=== PATIENT | female | born 1935 | race Caucasian/White ===

== ENCOUNTER 2017-05-06 18:11 | Observation (INO) ==
--- NOTE | 2017-05-06 18:18 | Emergency Department Report ---
Lower Extremity Injury HPI - General Stated Complaint: fall - knee pain Time Seen by Provider: 05/06/17 18:27 Source: patient, family, EMS - History of Present Illness HPI Narrative: 81 YO F brought to ED via EMS with complaint of left knee pain after a fall at home. Patient says she was putting away some laundry in her bathroom when she felt her left foot give way which caused her to fall landing on anterior left knee. Denies striking her head or other injuries. Patient uses a walker or a cane to ambulate. Says she was using her cane because walker will not go through her bathroom door. Niece who accompanies patient says that patient lives alone. She helps care for patient and is at patient house at least 4 times daily. Says patient had a fall and struck same knee on 04-09-17. Had TIA several days before last fall in early April. Patient denies any LOC, striking her head, neck/back pain, dizziness now or prior to fall or other injuries. MD complaint: knee injury Injury: Left: knee Type of Injury: blunt Place: home Severity: moderate Severity scale (1-10): 5 Other symptoms: none - Related Data Home Medications Medication Instructions Recorded Confirmed Allopurinol 100 mg PO DAILY #0 08/16/09 05/06/17 Lisinopril 10 mg PO DAILY #0 08/16/09 05/06/17 Potassium Chloride [Klor-Con 10] 10 meq PO DAILY #0 08/16/09 05/06/17 Furosemide [Lasix] 40 mg PO BID #0 tab 11/03/14 05/06/17 Acetaminophen 650 mg PO Q4H PRN 05/06/17 05/06/17 Aspirin [Priscila Chewable Aspirin] 81 mg PO PM 05/06/17 05/06/17 Atorvastatin [Lipitor] 20 mg PO PM 05/06/17 05/06/17 Calcium Carbonate/Vitamin D3 1 tab PO BID 05/06/17 05/06/17 [Os-Tyrel 500-Vit D3 200 Caplet] Carboxymethyl/Glycerin/Poly80 1 drop EACH EYE DAILY 05/06/17 05/06/17 [Refresh Optive Advanced Drops] Cholecalciferol (Vitamin D3) 400 unit PO PM 05/06/17 05/06/17 [Vitamin D3] Ferrous Sulfate [Iron] 325 mg PO PM 05/06/17 05/06/17 Insulin NPH/Reg-Don't Expunge 10 unit SQ WS 05/06/17 05/06/17 [Humulin 70/30] Insulin NPH/Reg-Don't Expunge 20 unit SQ AMI 05/06/17 05/06/17 [Humulin 70/30] Multivit-Min/FA/Lycopen/Lutein 1 tab PO PM 05/06/17 05/06/17 [Centrum Silver Tablet] Allergies Allergy/AdvReac Type Severity Reaction Status Date / Time tramadol Allergy Severe Constipatio Verified 05/06/17 19:07 n cyclobenzaprine Allergy Mild Constipatio Verified 05/06/17 18:23 n hydrocodone Allergy Mild Constipatio Verified 05/06/17 18:23 n chlorpheniramine Allergy Unknown Verified 05/06/17 19:07 metformin Allergy Unknown Unconscious Unverified 05/07/17 15:47 Review of Systems All systems: reviewed and negative except as stated Musculoskeletal: Reports: as per HPI, joint swelling (and pain) PFSH Patient Stated Medical History Cataracts Yes Congestive Heart Failure Yes Hypertension Yes Sleep Apnea Yes Diabetes Mellitus Type 1 Yes Diabetes Mellitus Type 2 Yes Type II diabetic Surgical History: Tonsillectomy. Hysterectomy. Cholecystectomy. Cataract. Ganglion cyst Family History: noncontributory - Social History Smoking status: Never smoker Housing: house Household members: none Current occupational status: retired Physical Exam - General General appearance: alert - Normal Exams: Head:: Normocephalic without trauma Eyes:: Pupils are PERRLA w/ EOMI, No scleral icterus, irritation ENMT:: No facial trauma, nasal exudates Neck:: Full range of motion Chest/Respirations:: Clear all smith, with good airflow, and symmetry bilaterally Cardiovascular:: Regular rate and rhythm Neurological:: Patient is alert, and oriented, cranial nerves, motor/sensory/ cerebellar, exams w/o gross deficits, to observation Psychiatric:: Patient exhibits, appropriate attention - Neck Neck exam: Present: trachea midline - Expanded Lower Extremity Exam Upper leg exam: Absent: tenderness (left), swelling (left) Knee exam: Present: tenderness (anterior left knee), swelling (anterior left knee), ecchymosis (over anterior left knee), knee extension intact (left). Absent: deformity, crepitus, dislocation, erythema, anterior drawer sign, laxity with valgus, laxity with varus Lower leg exam: Absent: tenderness (left), swelling (left), ecchymosis (left), erythema (left) Ankle exam: Present: full ROM (left). Absent: tenderness (left), swelling (left ) Foot/toe exam: Present: normal inspection (bilterally) Neurovascular/Tendon exam: Present: normal fine/light touch. Absent: pulse deficit, extremity cold to touch - Skin Skin exam: Present: warm, dry, other (ecchymosis on upper left arm (which patient says was from prior fall)) - Psychiatric Psychiatric exam: Present: normal affect Course - Consultations Consultation #1: I discussed patient's HPI, PMH, VS, exam findings and x-rays with Dr. John hospitalist. Dr. John will admit observation status. Vital Signs Temperature 98.4 F 05/06/17 18:15 Pulse Rate 55 L 05/06/17 18:15 Respiratory Rate 20 05/06/17 18:15 Blood Pressure 146/73 H 05/06/17 18:15 Pulse Oximetry 99 05/06/17 18:15 Temperature 96.0 F L 05/07/17 16:00 Pulse Rate 60 05/07/17 16:00 Respiratory Rate 20 05/07/17 16:00 Blood Pressure 117/60 05/07/17 16:00 Pulse Oximetry 94 05/07/17 16:00 Extremity Injury, Lower - MDM Narrative Medical decision making narrative: Patient declines anything for pain after on arrival. Was given 100mcg of fentanyl by EMS, says knee is not that painful unless she moves knee. Patient up to ambulate. Does not complain of pain in left knee, but say that her right great toe is painful when she bears weight. X-ray ordered on right great toe. Right great toe x-ray does not show a fracture. I discussed x-ray findings with patient and her niece. Patient says she does not feel safe going home since she lives alone. I discussed conversation I had with Dr. John with patint and her niece. They agree to observation admission. - Differential Diagnosis Likely: acute internal derangement of knee (, knee sprain, knee contusion), fracture of toe, ankle fracture - Medical Records Attestation: I reviewed the patient's medical records. - Lab Data Result diagrams: 05/07/17 09:23 05/07/17 09:23 - Radiology Data Attestation: I reviewed the patient's radiology results. Left knee, no acute osseous findings (Dr. Arceo) Right great toe, no acute osseous findings degenerative changes and osteoporosis (Dr. Arceo) Disposition Clinical Impression: Left Knee Contusion, Toe pain, right Fall Qualifiers: Encounter type: initial encounter Qualified Code(s): W19.XXXA - Unspecified fall, initial encounter Disposition: 02 To [facility] Condition: Improved - Seen By: midlevel
[2017-05-06] MEDS ORDERED: MORPHINE SULFATE 4 MG SYRINGE IVP PRN (21:39)
[2017-05-06] MEDS ORDERED: ONDANSETRON ODT 4 MG TABLET PO PRN (22:49)
[2017-05-06] MEDS ORDERED: ACETAMINOPHEN 325 MG TABLET PO PRN (22:49)
[2017-05-06] MEDS ORDERED: HYDROCODONE/APAP 5mg/325mg TABLET PO PRN (22:49)
--- NOTE | 2017-05-06 23:36 | History & Physical Report ---
<Andreas Elias E - Last Filed: 05/06/17 23:32> History of Present Illness Date: 05/06/17 Chief complaint: Debility status post fall HPI: 81-year-old female who presents to the ER this evening after sustaining a fall at home. She reported that she was doing some laundry and had a mechanical fall while using her cane. She also uses a walker at home. Due to the pain, she sought care in the ER this evening. X-rays have been done, including knee and foot which revealed no evidence of fracture. She received some fentanyl in the ambulance on her way to the hospital, but has not had any further pain medication at her own request. She is apparently worried that she will fall again this evening, and apparently fell one month ago. She also had a TIA one month ago. Due to the concern for weakness and debility, she has requested to stay in the hospital this evening. Thus, she will be placed under observational status with consultation to OT/PT for further evaluation in the morning. Please note this patient encounter was performed via the use of telemedicine technology Review of Systems All systems PM: 10-point ROS was reviewed, no additional remarkable complaints except PFSH Surgical History: Tonsillectomy. Hysterectomy. Cholecystectomy. Cataract. Ganglion cyst - Social History Smoking status: Never smoker Medications Home Medications Medication Instructions Recorded Confirmed Type Allopurinol 100 mg PO DAILY #0 08/16/09 05/06/17 History Lisinopril 10 mg PO DAILY #0 08/16/09 05/06/17 History Potassium Chloride [Klor-Con 10] 10 meq PO DAILY #0 08/16/09 05/06/17 History Furosemide [Lasix] 40 mg PO BID #0 tab 11/03/14 05/06/17 History Acetaminophen 650 mg PO Q4H PRN 05/06/17 05/06/17 History Aspirin [Priscila Chewable Aspirin] 81 mg PO PM 05/06/17 05/06/17 History Atorvastatin [Lipitor] 20 mg PO PM 05/06/17 05/06/17 History Calcium Carbonate/Vitamin D3 1 tab PO BID 05/06/17 05/06/17 History [Os-Tyrel 500-Vit D3 200 Caplet] Carboxymethyl/Glycerin/Poly80 1 drop EACH EYE DAILY 05/06/17 05/06/17 History [Refresh Optive Advanced Drops] Cholecalciferol (Vitamin D3) 400 unit PO PM 05/06/17 05/06/17 History [Vitamin D3] Ferrous Sulfate [Iron] 325 mg PO PM 05/06/17 05/06/17 History Insulin NPH/Reg-Don't Expunge 10 unit SQ WS 05/06/17 05/06/17 History [Humulin 70/30] Insulin NPH/Reg-Don't Expunge 20 unit SQ AMI 05/06/17 05/06/17 History [Humulin 70/30] Multivit-Min/FA/Lycopen/Lutein 1 tab PO PM 05/06/17 05/06/17 History [Centrum Silver Tablet] Allergies Allergy/AdvReac Type Severity Reaction Status Date / Time metformin [From Glucophage] Allergy Severe Unconscious Verified 05/06/17 18:23 tramadol Allergy Severe Constipatio Verified 05/06/17 19:07 n cyclobenzaprine Allergy Mild Constipatio Verified 05/06/17 18:23 n hydrocodone Allergy Mild Constipatio Verified 05/06/17 18:23 n chlorpheniramine Allergy Unknown Verified 05/06/17 19:07 Exam Vital Signs: Temperature 98.4 F 05/06/17 18:15 Pulse Rate 67 05/06/17 22:55 Respiratory Rate 12 05/06/17 22:55 Blood Pressure 123/68 05/06/17 22:55 Pulse Oximetry 93 05/06/17 22:55 - Constitutional Present: no acute distress, morbidly obese - Routine HEENT Exam Head: Present: normocephalic, atraumatic - Routine Respiratory Exam Present: CTA bilaterally - Routine Cardiovascular Exam Present: RRR, S1, S2 - Routine Abdominal Exam Present: soft - Routine Extremities Exam Absent: edema - Routine Neurological Exam Present: alert, oriented X3 Assessment and Plan (1) Debility Current visit: Yes Status: Acute Resuscitation Status: Full Code Assessment and Plan: Assessment 1. Mechanical fall with reported weakness and debility 2. History of TIA one month ago 3. Questionable CHF diagnosis 4. Dementia 5. Insulin-dependent diabetes mellitus 6. Gout 7. Hyperlipidemia 8. Obstructive sleep apnea Plan Patient will be placed under observational status to the medical floor. I will review her home medications and continue those which would be appropriate at this present time, including certainly her insulin orders. As necessary pain medications will be provided, should she she request them. In the morning, consultation to OT/PTas mentioned above. She requests a full code status. I believe previously she has had advanced directives for a DNR status. DVT prophylaxis: Will be with subcutaneous Lovenox Hospital Course Summary Disclaimer: The visit summary below is not to be considered part of the above Progress Note. <Vitaly Phillips - Last Filed: 05/07/17 12:39> History of Present Illness Date: 05/07/17 [facility] Patient Stated Medical History Transient Ischemic Attacks ( Yes: April 04, 2017 TIA) Cataracts Yes Congestive Heart Failure Yes Hypertension Yes Sleep Apnea Yes Diabetes Mellitus Type 2 Yes Other GI Yes: Blocked bowel with surgery. Exam Vital Signs: Temperature 95.1 F L 05/07/17 07:30 Pulse Rate 53 L 05/07/17 07:30 Respiratory Rate 20 05/07/17 07:30 Blood Pressure 119/54 05/07/17 07:30 Pulse Oximetry 93 05/06/17 22:55 Height/Weight/BMI: Height 1.55 m Weight 108.5 kg Body Mass Index 45.1 Results - Labs CBC & Chem 7: 05/07/17 09:23 05/07/17 09:23 Assessment and Plan (1) Debility Current visit: Yes Status: Acute DVT Prophylaxis: Lovenox Assessment and Plan: Have independently interviewed and examined pt. Chart reviewed. Reviewed above not and concur. CC: Fall, left knee pain. HPI: 81 y/o morbidly obese female who resides independently presents to ED secondary to fall with knee trauma. Was doing chores at home when fell. Landed on her left knee. Fell on 04/09 and landed on same knee. Left knee and foot very sore and painful since her fall. Reports having 'TIA' about a month ago- noticing more instability since. Overall functional at home until having this falls. Cognitively intact. Medically note some cough/congestion-worse in evening. Eating well. Did have episode of nausea and vomiting after given IV pain medication by EMS on way into ED. Stools stable-did need a laxative 1 week ago. No diarrhea. No f/c. PMHx: Type II DM, HTN, HDL, MARY, OA, Gout, Morbid Obesity. Hx Tonsillectomy, Hyst, GB removal, Meds: see mar ALL: Metformin, tramadol, cyclobenzaprine, hydrocodone, chlorpheniramine SHx: Single, resides independently in [place], No smoke, Fhx: NC ROS: As above. Gen: increased unsteadiness. HEENT: vision/hearing stable. No sinus congestion or drainage. Neck: notes discomfort to posterior right neck over past week. CV: no palpitation or chest pain. Lungs: as above GI: as above. : no urinary pain. Remainder of 10 point ROS discussed and negative. Exam. GEN: WDWNWF alert. HEENT: NC/AT PERRLA EOMI MMM Neck: supple, midline, no tracheal deviation Lungs: decreased bilaterally-no crackles, wheezes, distress. CV: regular rate and rhythm without murmur AB: soft Obese NT/NT EXT: Trace LE edema Neuro: CN II-XII intact. No focal motor deficits. Skin: Area of redness in abdominal skin folds. Psych: awake alert appropriate Assessment Mechanical fall with reported weakness and debility Left knee pain secondary to fall Tinea of abdominal skin folds History of TIA one month ago Questionable CHF diagnosis Dementia Insulin-dependent diabetes mellitus Gout Hyperlipidemia Obstructive sleep apnea Plan OBS admission. PT/OT to help functional status. Continue home medications. CM to help with discharge disposition. Check CMP CBC and CXR for completeness. Hospital Course Summary Disclaimer: The visit summary below is not to be considered part of the above Progress Note. Hospital Course: 05/06/17 Observation Assessment Mechanical fall with reported weakness and debility Left Knee pain secondary to fall Tinea of abdominal skin folds History of TIA one month ago Questionable CHF diagnosis Dementia Insulin-dependent diabetes mellitus Gout Hyperlipidemia Obstructive sleep apnea Morbid obesity Plan Patient will be placed under observational status to the medical floor. I will review her home medications and continue those which would be appropriate at this present time, including certainly her insulin orders. As necessary pain medications will be provided, should she she request them. In the morning, consultation to OT/PTas mentioned above. She requests a full code status. I believe previously she has had advanced directives for a DNR status. DVT prophylaxis: Will be with subcutaneous Lovenox 05/07/17 Will check CMP and CBC for completeness. Check CXR due to cough. CM consulted for postdischarge disposition.
[2017-05-06 23:53] VITALS: BMI 45.1
[2017-05-07] MEDS ORDERED: FALL RISK - PHARMACY CONSULT XX ONE
[2017-05-07] MEDS ORDERED: INSULIN NPH/REG 70/30 INJECTION SQ SCH ×2 (07:30→17:30)
[2017-05-07 07:33] VITALS: RESP 20
[2017-05-07] MEDS ORDERED: POTASSIUM CHLORIDE 10 MEQ PO SCH (08:00)
--- NOTE | 2017-05-07 08:01 | XRay Report ---
Indication: pain in right great toe PROCEDURE: XR toe RT min 2V: Encounter: Initial Comparison: None Findings: There is no acute fracture, dislocation or malalignment identified. Severe bony demineralization limiting detection of nondisplaced fractures. Impression: No acute osseous abnormality. .
--- NOTE | 2017-05-07 08:41 | XRay Report ---
Indication: pain and swelling after fall PROCEDURE: XR knee LT 3V: Encounter: Initial Comparison: November 03, 2014 Findings: There is no acute fracture, dislocation or malalignment identified. Severe osteoarthritis. Impression: No acute osseous abnormality. .
[2017-05-07] MEDS: POM FUROSEMIDE 40 MG TABLET PO SCH ×2 (08:53→15:36)
[2017-05-07] MEDS ORDERED: LISINOPRIL 10 MG PO SCH (09:00)
[2017-05-07] MEDS ORDERED: ENOXAPARIN 40 MG/0.4 ML INJECTION SQ SCH (09:00)
[2017-05-07] MEDS ORDERED: REFRESH CLASSIC Eye Drops 0.4ml EACH EYE SCH (09:00)
[2017-05-07] MEDS ORDERED: POM ALLOPURINOL 100 MG TABLET PO SCH (09:00)
[2017-05-07] MEDS ORDERED: CALCIUM 500 + VIT D 200 TABLET PO SCH (09:00)
--- NOTE | 2017-05-07 12:35 | XRay Report ---
Indication: Cough PROCEDURE: XR chest 1V: Encounter: Initial Comparison: None FINDINGS: The lungs are clear. There is no abnormal airspace opacity, pleural effusion or pneumothorax identified. The heart size, pulmonary vasculature and mediastinum are within normal limits. Cholecystectomy clips. No significant skeletal abnormality is seen. IMPRESSION: No acute cardiopulmonary abnormality. .
[2017-05-07 16:13] VITALS: BP 117/60; PULSE 60; TEMP 96; O2SAT 94
--- NOTE | 2017-05-07 19:10 | Discharge Summary ---
Discharge Information Date of admission: 05/06/17 21:58 Anticipated date of discharge: 05/07/17 Attending Physician: Vitaly Phillips MD Primary care physician: Brad Lutz II, MD Consults: PT/OT - Discharge Diagnosis (1) Debility Status: Acute Discharge Diagnosis: Discharge diagnosis Mechanical fall with reported weakness and debility Associated conditions and complications Left Knee pain secondary to fall Tinea of abdominal skin folds Hypernatremia History of TIA one month ago Questionable CHF diagnosis Dementia Insulin-dependent diabetes mellitus Gout Hyperlipidemia Obstructive sleep apnea Morbid obesity BMI 45.2 - Laboratory Labs: 05/07/17 09:23 05/07/17 09:23 - Radiology Radiology: Date of Exam: 05/06/17 PROCEDURE: XR knee LT 3V Findings: There is no acute fracture, dislocation or malalignment identified. Severe osteoarthritis. Impression: No acute osseous abnormality. Date of Exam: 05/06/17 PROCEDURE: XR toe RT min 2V Findings: There is no acute fracture, dislocation or malalignment identified. Severe bony demineralization limiting detection of nondisplaced fractures. Impression: No acute osseous abnormality. Date of Exam: 05/07/17 PROCEDURE: XR chest 1V FINDINGS: The lungs are clear. There is no abnormal airspace opacity, pleural effusion or pneumothorax identified. The heart size, pulmonary vasculature and mediastinum are within normal limits. Cholecystectomy clips. No significant skeletal abnormality is seen. IMPRESSION: No acute cardiopulmonary abnormality. History of Present Illness HPI: 81-year-old female who presents to the ER this evening after sustaining a fall at home. She reported that she was doing some laundry and had a mechanical fall while using her cane. She also uses a walker at home. Due to the pain, she sought care in the ER this evening. X-rays have been done, including knee and foot which revealed no evidence of fracture. She received some fentanyl in the ambulance on her way to the hospital, but has not had any further pain medication at her own request. She is apparently worried that she will fall again this evening, and apparently fell one month ago. She also had a TIA one month ago. Due to the concern for weakness and debility, she has requested to stay in the hospital this evening. Thus, she will be placed under observational status with consultation to OT/PT for further evaluation in the morning. For complete details of the H&P refer to that document. Objective Vital signs: Temperature 96.0 F L 05/07/17 16:00 Pulse Rate 60 05/07/17 16:00 Respiratory Rate 20 05/07/17 16:00 Blood Pressure 117/60 05/07/17 16:00 Pulse Oximetry 94 05/07/17 16:00 Height/Weight/BMI: Height 1.55 m Weight 108.5 kg Body Mass Index 45.1 Hospital Course This is a general summary of the patient's hospital course. For more details refer to the complete medical record. Hospital course: 05/06/17 Observation Assessment Mechanical fall with reported weakness and debility Left Knee pain secondary to fall Tinea of abdominal skin folds History of TIA one month ago Questionable CHF diagnosis Dementia Insulin-dependent diabetes mellitus Gout Hyperlipidemia Obstructive sleep apnea Morbid obesity Plan Patient will be placed under observational status to the medical floor. I will review her home medications and continue those which would be appropriate at this present time, including certainly her insulin orders. As necessary pain medications will be provided, should she she request them. In the morning, consultation to OT/PTas mentioned above. She requests a full code status. I believe previously she has had advanced directives for a DNR status. DVT prophylaxis: Will be with subcutaneous Lovenox 05/07/17 Will check CMP and CBC for completeness. Check CXR due to cough. CM consulted for postdischarge disposition. Patient did participate well with therapy. Pain decreased and did see some improvement in abilities. CM looked into multiple options for patient. Ultimately elected on discharge to home with home health and PT. Pt can call into IRU on Wednesday for further evaluation for rehab if needs continue. Will discharge to home in stable condition. F/U with Dr Lutz in 1 week. See orders for details. Time spent with patient: discharge greater than 30 minutes DVT Prophylaxis: Lovenox Discharge Plan - Med Rec/Dispo Referrals/Follow Up: Brad Lutz II, MD [Family Provider] - 1 Week (Hospital follow up ) Prescriptions: New Nystatin Powder [Mycostatin] 1 applic TP TID bottle Hydrocodone/APAP 5/325 [[place] 5/325] 1 tab PO Q6H PRN #20 tab PRN Reason: Pain Continue Acetaminophen 650 mg PO Q4H PRN PRN Reason: Pain Cholecalciferol (Vitamin D3) [Vitamin D3] 400 unit PO PM Atorvastatin [Lipitor] 20 mg PO PM Aspirin [Priscila Chewable Aspirin] 81 mg PO PM Carboxymethyl/Glycerin/Poly80 [Refresh Optive Advanced Drops] 1 drop EACH EYE DAILY Calcium Carbonate/Vitamin D3 [Os-Tryel 500-Vit D3 200 Caplet] 1 tab PO BID Insulin NPH/Reg-Don't Expunge [Humulin 70/30] 20 unit SQ AMI Allopurinol 100 mg PO DAILY #0 Potassium Chloride [Klor-Con 10] 10 meq PO DAILY #0 Lisinopril 10 mg PO DAILY #0 Furosemide [Lasix] 40 mg PO BID #0 tab Multivit-Min/FA/Lycopen/Lutein [Centrum Silver Tablet] 1 tab PO PM Ferrous Sulfate [Iron] 325 mg PO PM Insulin NPH/Reg-Don't Expunge [Humulin 70/30] 10 unit SQ WS Discharge Instructions/Outpatient Orders: Final Provider Discharge Instructions Location: Determined By Patient - Disposition [address] [place] [address] Health Service - Attestation Attestation Narrative: 05/07/17 19:20 I have independently interviewed and examined patient. Medically stable for discharge to home.
[2017-05-07] MEDS ORDERED: POM ATORVASTATIN 40 MG TABLET PO SCH (20:00)
[2017-05-07] MEDS ORDERED: FERROUS SULFATE 324 MG TABLET PO SCH (20:00)
[2017-05-07] MEDS ORDERED: MULTI-VITAMIN + MINERAL TABLET PO SCH (20:00)
[2017-05-07] MEDS ORDERED: ASPIRIN 81 MG CHEWABLE TABLET PO SCH (20:00)
== END 2017-05-07 20:25 | disposition home health service (06) ==
LOC: MED 18:11 → ED 18:11 → MED 22:45
PROVIDERS: ADMIT Hospitalist; ATTEND Hospitalist